=== PATIENT | male | born 1935 | race Caucasian/White ===

== ENCOUNTER 2018-11-18 16:24 | Inpatient (IN) | payer BC ==
[2018-11-18] MEDS: SOD CHLORIDE 0.9% 500 ML IV (16:47)
[2018-11-18] MEDS ORDERED: ACETAMINOPHEN 325 MG TAB PO ×2 (20:30)
[2018-11-18] MEDS ORDERED: HYDROCODONE/APAP (5/325) TAB PO (20:30)
[2018-11-18] MEDS ORDERED: NACL 0.9% 3 ML SYG IV (20:30)
[2018-11-18] MEDS ORDERED: ONDANSETRON 4 MG INJ IV ×2 (20:30)
[2018-11-18] MEDS ORDERED: BISACODYL (EC) 5 MG TAB PO (20:30)
[2018-11-18] MEDS: DOCUSATE SODIUM 100 MG CAP PO (21:03)
[2018-11-19] MEDS: CEFTRIAXONE 1 GM/50 ML (PMX) 50 ML IVPB (02:05)
[2018-11-19] MEDS: LEVOTHYROXINE 137 MCG TAB PO (08:14)
[2018-11-19] MEDS: DOCUSATE SODIUM 100 MG CAP PO ×2 (08:15→20:30)
[2018-11-19] MEDS ORDERED: SILODOSIN 4 MG PO (09:00)
[2018-11-19] MEDS: [UNRECOGNIZED DRUG - REMARK] XX ×2 (09:30→17:30)
[2018-11-19] MEDS ORDERED: RIVAROXABAN 20 MG TABLET PO (17:55)
[2018-11-19] MEDS ORDERED: IOHEXOL 14.3 MG(I)/ML (ADULT) BTL PO (20:00)
[2018-11-20] MEDS: [UNRECOGNIZED DRUG - REMARK] XX ×3 (01:22→17:30)
[2018-11-20] MEDS: CEFTRIAXONE 1 GM/50 ML (PMX) 50 ML IVPB (01:45)
[2018-11-20] MEDS: LEVOTHYROXINE 137 MCG TAB PO (07:00)
[2018-11-20] MEDS: DIGOXIN 500 MCG INJ IV (08:21)
[2018-11-20] MEDS: DOCUSATE SODIUM 100 MG CAP PO ×2 (08:25→20:30)
[2018-11-20] MEDS: SOD CHLORIDE 0.9% 100 ML (08:40)
[2018-11-20] MEDS: IOHEXOL 300MG/ML 150 ML BTL (08:49)
[2018-11-21] MEDS: CEFTRIAXONE 1 GM/50 ML (PMX) 50 ML IVPB (01:00)
[2018-11-21] MEDS: [UNRECOGNIZED DRUG - REMARK] XX ×2 (01:30→08:54)
[2018-11-21] MEDS: LEVOTHYROXINE 137 MCG TAB PO (06:10)
[2018-11-21] MEDS: DOCUSATE SODIUM 100 MG CAP PO (08:30)
[2018-11-21] MEDS: FINASTERIDE 5 MG TAB PO (15:19)
[2018-11-22] MEDS ORDERED: LEVOTHYROXINE 125 MCG TAB PO (07:00)
== END 2018-11-21 16:32 | disposition home or self-care (01) | DRG 563 ==
LOC: TEL 20:51 → E/R 16:24
DX: S82.62XA Displaced fracture of lateral malleolus of left fibula, initial encounter for closed fracture (principal); N39.0 Urinary tract infection, site not specified; G93.40 Encephalopathy, unspecified; I10 Essential (primary) hypertension; E03.9 Hypothyroidism, unspecified; Z96.641 Presence of right artificial hip joint; I48.0 Paroxysmal atrial fibrillation; B95.1 Streptococcus, group B, as the cause of diseases classified elsewhere; N40.1 Benign prostatic hyperplasia with lower urinary tract symptoms; W01.0XXA Fall on same level from slipping, tripping and stumbling without subsequent striking against object, initial encounter; Y92.009 Unspecified place in unspecified non-institutional (private) residence as the place of occurrence of the external cause
CPT/HCPCS: 36415; 70450; 71045; 72192; 73590; 73610; 73700; 74170; 76775; 80048; 80053; 80307; 81001; 82962; 83036; 83735; 84443; 84484; 85025; 87086; 93005; 93306; 93880; 96360; 96361; 97116; 97161; 97164; 99285-25; G0378